=== PATIENT | female | born 1960 | race Caucasian/White ===

== ENCOUNTER 2016-12-26 18:25 | Inpatient (IN) | payer OTHER ==
[~2016-12-26] VITALS: Ht 165.1 cm; Wt 69.3 kg
[~2016-12-26 18:25] MED LIST: ADULT LOW DOSE81 M1 PO; ADVAIR 250/501 DISK IH; ALPRAZOLAM0.25 MG PO; ALPRAZOLAM0.5 MG; AMBIEN10 MG PO; ASPIRIN E.C.81 M1 PO; BACLOFEN10 MG; BAYER CHILDREN'81 M1 PO; CARVEDILOL12.5 MG; CARVEDILOL12.5 MG PO; CARVEDILOL25 MG PO; CLONAZEPAM0.5 MG PO; COMBIVENT INH14.7 GM IH; COMPAZINE10 MG PO; COREG12.5 M1; COREG12.5 M1 PO; Carvedilol PO; DESYREL100 MG PO; DIAZEPAM5 MG; DILAUDID2 MG PO; DIOVAN160 MG PO; DIOVAN80 MG PO; ERGOCALCIF50000 UNIT PO; ESCITALOPRAM OX10 MG PO; ESCITALOPRAM OX20 MG; ESCITALOPRAM OX20 MG PO; FLEXERIL10 MG PO; GABAPENTIN100 MG; HYDROCODON-ACE1 EAC9 PO; IMODIUM A-D2 MG PO; INDOCIN25 MG PO; KLONOPIN0.5 M1 PO; KlonoPIN PO; LANOXIN,DIGI0.125 MG PO; LASIX40 MG PO; LEXAPRO10 MG PO; LEXAPRO20 MG PO; LIDOCAINE HCL35 GM TP; LIDODERM 5% P1 PATCH; LIDODERM 5% P1 PATCH TD; LISINOPRIL20 MG PO; LO-DOSE ASPIRIN81 M1 PO; Lexapro PO; METHOCARBAMOL500 MG PO; MYCOSTATIN 100,60 ML PO; NEURONTIN400 MG PO; NORCO 7.5/321 TABLET PO; OMEPRAZOLE40 M1 PO; OXCARBAZEPINE300 MG PO; OXCARBAZEPINE600 MG; OXCARBAZEPINE600 MG PO; OXECTA5 MG PO; OXYCODONE HCL5 M1 PO; OXYCODONE HCL5 MG; OXYCODONE HCL5 MG PO; Oxcarbazepine PO; PEPCID20 MG PO; PERCOCET 5/31 TABLET PO; PREDNISONE20 MG PO; PRILOSEC40 MG PO; PRINIVIL10 MG PO; PROAIR HFA8.5 GM IH; Percocet 5/325,Endoc PO; RANITIDINE HCL150 MG PO; SPIRIVA1 INHALATI IH; TRAZODONE HCL100 MG PO; TYLENOL EXTRA500 M2 PO; Toprol XL PO; Tylenol Extra Streng PO; Tylenol Regular Stre PO; VALIUM10 MG; VALIUM5 MG; ZENPEP DR 5,001 EACH PO; ZESTRIL,PRINIVI10 MG PO; ZITHROMAX Z-PA250 MG PO; ZOFRAN8 MG PO; ZOLPIDEM TARTRA10 MG; ZOLPIDEM TARTRATE; Zestril,Prinivil PO; [UNRECOGNIZED DRUG - REMARK]
[2016-12-26 19:30] LABS: HEMATOCRIT 36.4 % (36.0-46.0); MCH 30.2 PG (29.0-34.0); MCHC 33.2 G/DL (30.0-36.0); MCV 90.8 FL (83-99); MEAN PLAT.VOLUME 10.3 uM^3 (9.5-12.4); PLATELET COUNT 197 K/uL (156-360); RBC DIS.WIDTH-CV 12.6 % (11.8-14.6); RBC DIS.WIDTH-SD 41.6 % (39-53); RED BLOOD COUNT 4.01 M/uL (3.80-5.20); WHITE BLOOD COUNT 10.5 K/uL (4.1-10.2)
[2016-12-26 19:52] LABS: ADD MIUA? YES; BILIRUBIN NEGATIVE; BLOOD SMALL; COLOR YELLOW ((YELLOW)); GLUCOSE (STRIP) NEGATIVE; KETONES NEGATIVE; LEUKOCYTES NEGATIVE; NITRITE NEGATIVE; PROTEIN (STRIP) NEGATIVE; UROBILINOGEN 0.2 MG/DL (0.2-1.0)
[2016-12-26 19:52] LABS: CHLORIDE 111 mEq/L (99-109); POTASSIUM 3.9 mEq/L (3.7-5.4); SODIUM 141 mEq/L (136-147)
[2016-12-26 19:53] LABS: GLUCOSE 114 mg/dL (70-99)
[2016-12-26 19:55] LABS: ANION GAP 5 MEQ/L (2-14)
[2016-12-26 19:57] LABS: GFR ESTIMATE (CALCULATED) > 59 mL/min/
[2016-12-26 19:58] LABS: UREA NITROGEN (BUN) 17 mg/dL (9-23)
[2016-12-26 19:59] LABS: BACTERIA RARE /HPF; EPITHELIAL CELLS RARE /HPF; MUCUS TRACE /LPF; RED BLOOD CELLS 0-5 /HPF (0-5); UCUL ADDED? NO; WHITE BLOOD CELLS 0-5 /HPF (0-5)
[2016-12-26 21:22] LABS: TOTAL BILIRUBIN 0.2 mg/dL (0.0-1.0)
[2016-12-26 21:23] LABS: ALKALINE PHOSPHATASE 75 IU/L (3-129)
[2016-12-26 21:25] LABS: DIRECT BILIRUBIN 0.1 mg/dL (0.0-0.3)
[2016-12-26 21:45] LABS: AMYLASE 707 IU/L (1-118)
[2016-12-26 22:19] LABS: LIPASE 1307 U/L (1.0-51.0)
[2016-12-26] MEDS ORDERED: ASMANEX HFA13 GM IH (23:10)
[2016-12-26] MEDS ORDERED: TESSALON PERLE100 MG PO (23:11)
[2016-12-26] MEDS ORDERED: LEVAQUIN750 MG PO (23:12)
[2016-12-26] MEDS ORDERED: MAXALT10 MG PO (23:13)
[2016-12-27 01:13] VITALS: BP 151/78
[2016-12-27 03:33] VITALS: BP 115/59
[2016-12-27 07:41] LABS: HEMATOCRIT 32.9 % (36.0-46.0); MCH 29.7 PG (29.0-34.0); MCHC 32.5 G/DL (30.0-36.0); MCV 91.4 FL (83-99); PLATELET COUNT 175 K/uL (156-360); RBC DIS.WIDTH-CV 12.6 % (11.8-14.6); RBC DIS.WIDTH-SD 42.5 % (39-53); WHITE BLOOD COUNT 8.2 K/uL (4.1-10.2)
[2016-12-27 08:04] VITALS: BP 118/64
[2016-12-27 08:15] LABS: ALKALINE PHOSPHATASE 103 IU/L (3-129); AMYLASE 298 IU/L (1-118); ANION GAP 5 MEQ/L (2-14); CHLORIDE 112 MEQ/L (99-109); GFR ESTIMATE (CALCULATED) > 59 mL/min/; GLUCOSE 104 mg/dL (70-99); LIPASE 655 U/L (1.0-51.0); SAMPLE HEMOLYSIS CHECK 0; SAMPLE ICTERIC CHECK 0; SAMPLE LIPEMIA CHECK 0; SODIUM 143 MEQ/L (136-147); TOTAL BILIRUBIN 0.7 MG/DL (0.0-1.0); UREA NITROGEN (BUN) 10 mg/dL (9-23)
[2016-12-27 15:32] VITALS: BP 120/65
[2016-12-27 19:35] VITALS: BP 141/92
[2016-12-27 23:29] VITALS: BP 140/69
[2016-12-28 03:20] VITALS: BP 142/71
[2016-12-28 06:00] LABS: EOSINOPHIL (%) 0.4 % (0-5); IMMATURE GRANULOCYTE (%) 0.4 % (0.0-0.7); INSTRUMENT ABS NEUTROPHIL CT 4.5 K/uL; MCH 30.5 PG (29.0-34.0); MCHC 33.1 G/DL (30.0-36.0); MEAN PLAT.VOLUME 10.1 uM^3 (9.5-12.4); MONOCYTE COUNT 0.3 K/uL (0-0.8); NEUTROPHIL COUNT 4.5 K/uL (1.8-6.4); PLATELET COUNT 173 K/uL (156-360); RBC DIS.WIDTH-CV 12.6 % (11.8-14.6); RBC DIS.WIDTH-SD 42.3 % (39-53); RED BLOOD COUNT 3.48 M/uL (3.80-5.20); WHITE BLOOD COUNT 6.9 K/uL (4.1-10.2)
[2016-12-28 06:36] LABS: ALKALINE PHOSPHATASE 106 IU/L (3-129); ANION GAP 8 MEQ/L (2-14); CHLORIDE 108 MEQ/L (99-109); GFR ESTIMATE (CALCULATED) > 59 mL/min/; GLUCOSE 76 mg/dL (70-99); HDL CHOLESTEROL 30 MG/DL (Desirable>=50); LDL CHOLESTEROL 73 mg/dL (Desirable<100); LIPASE 195 U/L (1.0-51.0); NON-HDL CHOLESTEROL 88 mg/dL (Desirable<160); POTASSIUM 4.6 MEQ/L (3.7-5.4); SAMPLE HEMOLYSIS CHECK 0; SAMPLE ICTERIC CHECK 0; SAMPLE LIPEMIA CHECK 0; SODIUM 141 MEQ/L (136-147); TOTAL CHOLESTEROL 118 mg/dL (Desirable<200); TRIGLYCERIDES 74 MG/DL (Normal: <150); UREA NITROGEN (BUN) 11 mg/dL (9-23)
[2016-12-28 06:37] LABS: AMYLASE 115 IU/L (1-118); TOTAL BILIRUBIN 0.4 MG/DL (0.0-1.0)
[2016-12-28 08:39] VITALS: BP 138/73
[2016-12-28 11:21] VITALS: BP 146/67
[2016-12-28 15:49] VITALS: BP 176/79
[2016-12-28 19:11] VITALS: BP 154/70
[2016-12-28 23:37] VITALS: BP 148/78
[2016-12-29 03:50] VITALS: BP 132/71
[2016-12-29 05:44] LABS: CHLORIDE 111 mEq/L (99-109); POTASSIUM 3.8 mEq/L (3.7-5.4); SODIUM 148 mEq/L (136-147)
[2016-12-29 05:46] LABS: GLUCOSE 97 mg/dL (70-99)
[2016-12-29 05:47] LABS: ANION GAP 9 MEQ/L (2-14)
[2016-12-29 05:48] LABS: TOTAL BILIRUBIN 0.2 mg/dL (0.0-1.0)
[2016-12-29 05:50] LABS: ALKALINE PHOSPHATASE 96 IU/L (3-129); GFR ESTIMATE (CALCULATED) > 59 mL/min/
[2016-12-29 05:51] LABS: UREA NITROGEN (BUN) 5 mg/dL (9-23)
[2016-12-29 05:53] LABS: LIPASE 383 U/L (1.0-51.0)
[2016-12-29 05:59] LABS: EOSINOPHIL COUNT 0.1 K/uL (0-0.3); HEMATOCRIT 31.1 % (36.0-46.0); IMMATURE GRANULOCYTE (%) 0.5 % (0.0-0.7); INSTRUMENT ABS NEUTROPHIL CT 3.3 K/uL; LYMPHOCYTE COUNT 2.3 K/uL (1.0-2.8); MCH 30.2 PG (29.0-34.0); MCHC 33.4 G/DL (30.0-36.0); MCV 90.4 FL (83-99); MEAN PLAT.VOLUME 10.1 uM^3 (9.5-12.4); MONOCYTE (%) 6.8 % (3-12); MONOCYTE COUNT 0.4 K/uL (0-0.8); NEUTROPHIL (%) 54.1 % (45-76); NEUTROPHIL COUNT 3.3 K/uL (1.8-6.4); PLATELET COUNT 196 K/uL (156-360); RBC DIS.WIDTH-CV 12.6 % (11.8-14.6); RBC DIS.WIDTH-SD 41.7 % (39-53); RED BLOOD COUNT 3.44 M/uL (3.80-5.20); WHITE BLOOD COUNT 6.1 K/uL (4.1-10.2)
[2016-12-29 07:30] VITALS: BP 168/86
[2016-12-29 11:30] VITALS: BP 179/87
[2016-12-29 15:50] VITALS: BP 178/81
[2016-12-29] MEDS ORDERED: NICOTINE PATCH1 EAC2 TD (20:20)
[2016-12-29] MEDS ORDERED: NICORELIEF2 MG BC (20:20)
[2016-12-29] MEDS ORDERED: BREO ELLIPTA 21 EACH IH (20:23)
== END 2016-12-29 21:03 | disposition home or self-care (01) | DRG 439 ==
LOC: EME 18:25 → EDOF 23:21 → 2EASTP 23:21 → ENRESERV 23:23 → ENRESERVTM 12-27 00:15 → ENRESERV 12-27 00:15 → ENRESERVDT 12-27 00:15 → 2EASTP 12-27 00:53 → 2EAST 12-27 18:14
PROVIDERS: Family Medicine; Family Medicine Sports Medicine; Internal Medicine Gastroenterology
DX: K85.90 Acute pancreatitis without necrosis or infection, unspecified (principal); I11.0 Hypertensive heart disease with heart failure; I50.9 Heart failure, unspecified; K86.3 Pseudocyst of pancreas; K86.1 Other chronic pancreatitis; K27.9 Peptic ulcer, site unspecified, unspecified as acute or chronic, without hemorrhage or perforation; J44.9 Chronic obstructive pulmonary disease, unspecified; I25.10 Atherosclerotic heart disease of native coronary artery without angina pectoris; K21.9 Gastro-esophageal reflux disease without esophagitis; F32.9 Major depressive disorder, single episode, unspecified; F41.1 Generalized anxiety disorder; F43.10 Post-traumatic stress disorder, unspecified; F17.210 Nicotine dependence, cigarettes, uncomplicated; E11.9 Type 2 diabetes mellitus without complications; Z86.73 Personal history of transient ischemic attack (TIA), and cerebral infarction without residual deficits; Z90.49 Acquired absence of other specified parts of digestive tract; G89.29 Other chronic pain; M54.5 Low back pain; Z85.038 Personal history of other malignant neoplasm of large intestine; Z85.51 Personal history of malignant neoplasm of bladder; Z85.828 Personal history of other malignant neoplasm of skin; Z85.89 Personal history of malignant neoplasm of other organs and systems; Z23 Encounter for immunization
CPT/HCPCS: 71020; 74177; 80048; 80053; 80061; 80076; 81003; 82150; 83690; 85025; 85027; 90686; 94640; 94640 76; 94799; 99202; 99281; 99285; G0480; J1170; J1650; J2270; J2405; J2765; J3010; J7030; J7120; Q0169

== ENCOUNTER 2017-03-28 09:01 | Inpatient (IN) | payer OTHER ==
[~2017-03-28] VITALS: Ht 165.1 cm; Wt 82.0 kg
[~2017-03-28 09:01] MED LIST changes: +ACID CONTROL150 MG PO; +ALBUTEROL2.5 MG/3 M IH; +ASMANEX HFA13 GM IH; +BREO ELLIPTA 21 EACH IH; +BUSPAR10 MG PO; +CIPRO500 MG PO; -ESCITALOPRAM OX20 MG PO; +FERROUS SULFAT325 MG PO; +LEVAQUIN750 MG PO; +MAXALT10 MG PO; +NICORELIEF2 MG BC; +NICOTINE PATCH1 EAC2 TD; -RANITIDINE HCL150 MG PO; +TESSALON PERLE100 MG PO
[2017-03-28 09:32] LABS: HEMATOCRIT 40.1 % (36.0-46.0); HEMOGLOBIN 13.7 G/DL (11.9-15.5); MCH 30.8 PG (29.0-34.0); MCHC 34.2 G/DL (30.0-36.0); MCV 90.1 FL (83-99); PLATELET COUNT 218 K/uL (156-360); RBC DIS.WIDTH-CV 13.4 % (11.8-14.6); RED BLOOD COUNT 4.45 M/uL (3.80-5.20); WHITE BLOOD COUNT 7.9 K/uL (4.1-10.2)
[2017-03-28 09:50] LABS: CHLORIDE 108 mEq/L (99-109); POTASSIUM 4.8 mEq/L (3.7-5.4); SODIUM 138 mEq/L (136-147)
[2017-03-28 09:53] LABS: GLUCOSE 121 mg/dL (70-99); TOTAL PROTEIN 6.8 g/dL (6.4-8.3)
[2017-03-28 09:55] LABS: TOTAL BILIRUBIN 0.4 mg/dL (0.0-1.0)
[2017-03-28 09:56] LABS: ALKALINE PHOSPHATASE 78 IU/L (3-129); CREATININE 0.8 mg/dL (0.6-1.3); GFR ESTIMATE (CALCULATED) > 59 mL/min/
[2017-03-28 09:58] LABS: AST (GOT) 15 IU/L (2-34); UREA NITROGEN (BUN) 9 mg/dL (9-23)
[2017-03-28 09:59] LABS: ALT (GPT) 11 IU/L (3-49)
[2017-03-28 10:25] LABS: APPEARANCE SL.HAZY ((CLEAR)); BILIRUBIN NEGATIVE; BLOOD NEGATIVE; COLOR YELLOW ((YELLOW)); GLUCOSE (STRIP) NEGATIVE; KETONES NEGATIVE; LEUKOCYTES SMALL; NITRITE NEGATIVE; PROTEIN (STRIP) NEGATIVE; SPECIFIC GRAVITY 1.014 (1.000-1.030); UROBILINOGEN 0.2 MG/DL (0.2-1.0)
[2017-03-28 10:34] LABS: BACTERIA 1+ /HPF; EPITHELIAL CELLS RARE /HPF; MUCUS TRACE /LPF; RED BLOOD CELLS 0-5 /HPF (0-5); UCUL ADDED? YES; WHITE BLOOD CELLS 20-30 /HPF (0-5)
[2017-03-28] MEDS ORDERED: PRINIVIL20 MG PO (11:13)
[2017-03-28] MEDS ORDERED: HYDROCODON-ACE1 EAC9 PO (11:14)
[2017-03-28] MEDS ORDERED: BUSPAR10 MG PO (11:15)
[2017-03-28] MEDS ORDERED: CREON 241 CAPSULE PO ×2 (11:16)
[2017-03-28 12:16] LABS: LIPASE 1258 U/L (1.0-51.0)
[2017-03-28 20:29] VITALS: BP 120/70
[2017-03-28 22:00] LABS: APPEARANCE CLEAR ((CLEAR)); BILIRUBIN NEGATIVE; BLOOD SMALL; COLOR YELLOW ((YELLOW)); GLUCOSE (STRIP) NEGATIVE; KETONES NEGATIVE; LEUKOCYTES NEGATIVE; NITRITE NEGATIVE; PROTEIN (STRIP) NEGATIVE; SPECIFIC GRAVITY 1.023 (1.000-1.030)
[2017-03-28 22:16] LABS: BACTERIA RARE /HPF; EPITHELIAL CELLS RARE /HPF; MUCUS NONE SEEN /LPF; RED BLOOD CELLS 0-5 /HPF (0-5); WHITE BLOOD CELLS 0-5 /HPF (0-5)
[2017-03-28 23:24] VITALS: BP 108/62
[2017-03-29 06:36] LABS: ALBUMIN 3.1 G/DL (3.2-4.8); ALKALINE PHOSPHATASE 114 IU/L (3-129); ALT (GPT) 105 IU/L (3-49); AMYLASE 139 IU/L (1-118); AST (GOT) 133 IU/L (2-34); CHLORIDE 113 MEQ/L (99-109); CREATININE 0.7 MG/DL (0.6-1.3); GFR ESTIMATE (CALCULATED) > 59 mL/min/; LIPASE 163 U/L (1.0-51.0); POTASSIUM 4.2 MEQ/L (3.7-5.4); SODIUM 142 MEQ/L (136-147); TOTAL BILIRUBIN 0.4 MG/DL (0.0-1.0); TOTAL PROTEIN 5.1 G/DL (6.4-8.3); UREA NITROGEN (BUN) 8 mg/dL (9-23)
[2017-03-29 06:37] LABS: GLUCOSE 83 mg/dL (70-99)
[2017-03-29 06:51] LABS: HEMATOCRIT 33.7 % (36.0-46.0); MCH 31.2 PG (29.0-34.0); MCHC 33.5 G/DL (30.0-36.0); MCV 93.1 FL (83-99); PLATELET COUNT 157 K/uL (156-360); RBC DIS.WIDTH-CV 13.6 % (11.8-14.6); RBC DIS.WIDTH-SD 46.7 % (39-53); RED BLOOD COUNT 3.62 M/uL (3.80-5.20); WHITE BLOOD COUNT 4.8 K/uL (4.1-10.2)
[2017-03-29 06:59] LABS: HEMOGLOBIN 11.3 G/DL (11.9-15.5)
[2017-03-29 08:17] VITALS: BP 115/63
[2017-03-29 16:44] VITALS: BP 102/58
[2017-03-29 21:20] VITALS: BP 151/73
[2017-03-29 22:24] LABS: TROP-I INTERPRETATION NEGATIVE; TROPONIN-I < 0.01 ng/mL (0.0-0.30)
[2017-03-29 23:33] VITALS: BP 148/70
[2017-03-30 07:08] LABS: HEMATOCRIT 34.9 % (36.0-46.0); HEMOGLOBIN 10.9 G/DL (11.9-15.5); MCH 29.9 PG (29.0-34.0); MCHC 31.2 G/DL (30.0-36.0); MCV 95.6 FL (83-99); PLATELET COUNT 153 K/uL (156-360); RBC DIS.WIDTH-CV 13.2 % (11.8-14.6); RED BLOOD COUNT 3.65 M/uL (3.80-5.20); WHITE BLOOD COUNT 5.4 K/uL (4.1-10.2)
[2017-03-30 07:15] VITALS: BP 112/63
[2017-03-30 07:41] LABS: TROP-I INTERPRETATION NEGATIVE; TROPONIN-I 0.01 ng/mL (0.0-0.30)
[2017-03-30 08:17] LABS: ALBUMIN 3.1 G/DL (3.2-4.8); ALKALINE PHOSPHATASE 103 IU/L (3-129); ALT (GPT) 68 IU/L (3-49); CARCINOEMBR.ANTIGEN 1.4 NG/ML; CHLORIDE 112 MEQ/L (99-109); CREATININE 0.6 MG/DL (0.6-1.3); GFR ESTIMATE (CALCULATED) > 59 mL/min/; GLUCOSE 55 mg/dL (70-99); LIPASE 154 U/L (1.0-51.0); POTASSIUM 4.2 MEQ/L (3.7-5.4); SODIUM 142 MEQ/L (136-147); TOTAL BILIRUBIN 0.4 MG/DL (0.0-1.0); TOTAL PROTEIN 5.1 G/DL (6.4-8.3); UREA NITROGEN (BUN) 10 mg/dL (9-23)
[2017-03-30 08:25] LABS: AST (GOT) 50 IU/L (2-34)
[2017-03-30 11:10] VITALS: BP 116/67
[2017-03-30 15:07] LABS: TROP-I INTERPRETATION NEGATIVE; TROPONIN-I < 0.01 ng/mL (0.0-0.30)
[2017-03-30 15:15] VITALS: BP 134/71
[2017-03-30 20:20] VITALS: BP 139/70
[2017-03-30 23:14] VITALS: BP 126/68
[2017-03-31 03:59] VITALS: BP 123/57
[2017-03-31 06:28] LABS: HEMATOCRIT 33.3 % (36.0-46.0); HEMOGLOBIN 11.1 G/DL (11.9-15.5); MCH 30.7 PG (29.0-34.0); MCHC 33.3 G/DL (30.0-36.0); PLATELET COUNT 155 K/uL (156-360); RBC DIS.WIDTH-CV 13.1 % (11.8-14.6); RBC DIS.WIDTH-SD 43.6 % (39-53); RED BLOOD COUNT 3.62 M/uL (3.80-5.20); WHITE BLOOD COUNT 4.7 K/uL (4.1-10.2)
[2017-03-31 06:58] LABS: ALBUMIN 3.1 G/DL (3.2-4.8); ALKALINE PHOSPHATASE 95 IU/L (3-129); ALT (GPT) 47 IU/L (3-49); CHLORIDE 112 MEQ/L (99-109); CREATININE 0.7 MG/DL (0.6-1.3); GFR ESTIMATE (CALCULATED) > 59 mL/min/; LIPASE 193 U/L (1.0-51.0); POTASSIUM 4.1 MEQ/L (3.7-5.4); SODIUM 142 MEQ/L (136-147); TOTAL PROTEIN 5.1 G/DL (6.4-8.3); UREA NITROGEN (BUN) 10 mg/dL (9-23)
[2017-03-31 07:00] VITALS: BP 126/67
[2017-03-31 07:07] LABS: AST (GOT) 26 IU/L (2-34); GLUCOSE 48 mg/dL (70-99); TOTAL BILIRUBIN 0.3 MG/DL (0.0-1.0)
[2017-03-31 15:00] VITALS: BP 135/72
[2017-03-31 22:53] VITALS: BP 141/68
[2017-04-01 07:03] LABS: ALBUMIN 3.4 G/DL (3.2-4.8); ALKALINE PHOSPHATASE 93 IU/L (3-129); ALT (GPT) 39 IU/L (3-49); AST (GOT) 17 IU/L (2-34); CHLORIDE 114 MEQ/L (99-109); CREATININE 0.5 MG/DL (0.6-1.3); GFR ESTIMATE (CALCULATED) > 59 mL/min/; LIPASE 238 U/L (1.0-51.0); POTASSIUM 3.6 MEQ/L (3.7-5.4); SODIUM 146 MEQ/L (136-147); TOTAL BILIRUBIN 0.3 MG/DL (0.0-1.0); TOTAL PROTEIN 5.5 G/DL (6.4-8.3); UREA NITROGEN (BUN) 3 mg/dL (9-23)
[2017-04-01 07:06] LABS: GLUCOSE 110 mg/dL (70-99)
[2017-04-01 07:10] LABS: BASOPHIL (%) 1.1 % (0-1); BASOPHIL COUNT 0.1 K/uL (0-0.1); EOSINOPHIL (%) 5.3 % (0-5); EOSINOPHIL COUNT 0.2 K/uL (0-0.3); HEMATOCRIT 34.8 % (36.0-46.0); HEMOGLOBIN 11.7 G/DL (11.9-15.5); IMMATURE GRANULOCYTE (%) 0.7 % (0.0-0.7); LYMPHOCYTE (%) 35.7 % (15-42); LYMPHOCYTE COUNT 1.6 K/uL (1.0-2.8); MCH 29.7 PG (29.0-34.0); MCHC 33.6 G/DL (30.0-36.0); MCV 88.3 FL (83-99); MONOCYTE (%) 8.8 % (3-12); MONOCYTE COUNT 0.4 K/uL (0-0.8); NEUTROPHIL (%) 48.4 % (45-76); NEUTROPHIL COUNT 2.2 K/uL (1.8-6.4); PLATELET COUNT 171 K/uL (156-360); RBC DIS.WIDTH-SD 42.5 % (39-53); RED BLOOD COUNT 3.94 M/uL (3.80-5.20); WHITE BLOOD COUNT 4.5 K/uL (4.1-10.2)
[2017-04-01 07:45] VITALS: BP 143/82
[2017-04-01 15:00] VITALS: BP 184/102
[2017-04-02 00:01] VITALS: BP 143/74
[2017-04-02 06:32] LABS: BASOPHIL (%) 1.1 % (0-1); BASOPHIL COUNT 0.1 K/uL (0-0.1); EOSINOPHIL (%) 5.1 % (0-5); EOSINOPHIL COUNT 0.2 K/uL (0-0.3); HEMOGLOBIN 11.1 G/DL (11.9-15.5); IMMATURE GRANULOCYTE (%) 0.2 % (0.0-0.7); LYMPHOCYTE (%) 46.6 % (15-42); LYMPHOCYTE COUNT 2.2 K/uL (1.0-2.8); MCHC 33.6 G/DL (30.0-36.0); MCV 89.2 FL (83-99); MONOCYTE (%) 8.3 % (3-12); MONOCYTE COUNT 0.4 K/uL (0-0.8); NEUTROPHIL (%) 38.7 % (45-76); NEUTROPHIL COUNT 1.8 K/uL (1.8-6.4); PLATELET COUNT 159 K/uL (156-360); RBC DIS.WIDTH-CV 13.2 % (11.8-14.6); RBC DIS.WIDTH-SD 42.9 % (39-53); WHITE BLOOD COUNT 4.7 K/uL (4.1-10.2)
[2017-04-02 06:56] LABS: ALBUMIN 3.2 G/DL (3.2-4.8); ALKALINE PHOSPHATASE 80 IU/L (3-129); ALT (GPT) 29 IU/L (3-49); AMYLASE 107 IU/L (1-118); AST (GOT) 12 IU/L (2-34); CHLORIDE 110 MEQ/L (99-109); CREATININE 0.6 MG/DL (0.6-1.3); GFR ESTIMATE (CALCULATED) > 59 mL/min/; GLUCOSE 106 mg/dL (70-99); LIPASE 224 U/L (1.0-51.0); POTASSIUM 3.3 MEQ/L (3.7-5.4); SODIUM 144 MEQ/L (136-147); TOTAL PROTEIN 5.2 G/DL (6.4-8.3); UREA NITROGEN (BUN) 2 mg/dL (9-23)
[2017-04-02 06:57] LABS: TOTAL BILIRUBIN 0.2 MG/DL (0.0-1.0)
[2017-04-02 07:26] VITALS: BP 132/86
[2017-04-02 15:19] VITALS: BP 143/83
[2017-04-03 00:11] VITALS: BP 178/82
[2017-04-03 00:37] VITALS: BP 140/87
[2017-04-03 06:32] LABS: BASOPHIL (%) 0.8 % (0-1); BASOPHIL COUNT 0.1 K/uL (0-0.1); EOSINOPHIL (%) 3.7 % (0-5); EOSINOPHIL COUNT 0.2 K/uL (0-0.3); HEMATOCRIT 35.8 % (36.0-46.0); HEMOGLOBIN 12.3 G/DL (11.9-15.5); IMMATURE GRANULOCYTE (%) 0.3 % (0.0-0.7); LYMPHOCYTE (%) 38.7 % (15-42); LYMPHOCYTE COUNT 2.5 K/uL (1.0-2.8); MCH 30.9 PG (29.0-34.0); MCHC 34.4 G/DL (30.0-36.0); MCV 89.9 FL (83-99); MONOCYTE (%) 5.8 % (3-12); MONOCYTE COUNT 0.4 K/uL (0-0.8); NEUTROPHIL (%) 50.7 % (45-76); NEUTROPHIL COUNT 3.3 K/uL (1.8-6.4); PLATELET COUNT 177 K/uL (156-360); RBC DIS.WIDTH-CV 13.2 % (11.8-14.6); RBC DIS.WIDTH-SD 43.7 % (39-53); RED BLOOD COUNT 3.98 M/uL (3.80-5.20); WHITE BLOOD COUNT 6.5 K/uL (4.1-10.2)
[2017-04-03 06:46] LABS: ALBUMIN 3.3 G/DL (3.2-4.8); ALKALINE PHOSPHATASE 81 IU/L (3-129); ALT (GPT) 23 IU/L (3-49); AST (GOT) 10 IU/L (2-34); CHLORIDE 110 MEQ/L (99-109); CREATININE 0.6 MG/DL (0.6-1.3); GFR ESTIMATE (CALCULATED) > 59 mL/min/; GLUCOSE 98 mg/dL (70-99); LIPASE 427 U/L (1.0-51.0); SODIUM 145 MEQ/L (136-147); TOTAL PROTEIN 5.4 G/DL (6.4-8.3); UREA NITROGEN (BUN) 7 mg/dL (9-23)
[2017-04-03 06:50] LABS: POTASSIUM 4.1 MEQ/L (3.7-5.4); TOTAL BILIRUBIN 0.3 MG/DL (0.0-1.0)
[2017-04-03 07:43] VITALS: BP 156/87
[2017-04-03 16:14] VITALS: BP 136/83
[2017-04-04 00:09] VITALS: BP 130/77
[2017-04-04 07:05] VITALS: BP 166/83
[2017-04-04 15:45] VITALS: BP 160/79
[2017-04-05 00:04] VITALS: BP 140/74
[2017-04-05 07:15] VITALS: BP 144/87
[2017-04-05 15:53] VITALS: BP 167/86
== END 2017-04-05 21:10 | disposition home or self-care (01) | DRG 439 ==
LOC: EME 09:01 → RME 09:01 → 5EAST 13:00 → EDOF 13:00 → ENRESERV 13:18 → 5EAST 19:42
PROVIDERS: Internal Medicine; Internal Medicine Gastroenterology
DX: K85.90 Acute pancreatitis without necrosis or infection, unspecified (principal); K86.1 Other chronic pancreatitis; Z85.038 Personal history of other malignant neoplasm of large intestine; I11.0 Hypertensive heart disease with heart failure; I50.9 Heart failure, unspecified; D64.9 Anemia, unspecified; E87.6 Hypokalemia; F17.210 Nicotine dependence, cigarettes, uncomplicated; F41.9 Anxiety disorder, unspecified; F32.9 Major depressive disorder, single episode, unspecified; K21.9 Gastro-esophageal reflux disease without esophagitis; K86.3 Pseudocyst of pancreas; Z90.49 Acquired absence of other specified parts of digestive tract; E16.2 Hypoglycemia, unspecified; Z86.73 Personal history of transient ischemic attack (TIA), and cerebral infarction without residual deficits; Z83.3 Family history of diabetes mellitus; Z85.51 Personal history of malignant neoplasm of bladder
CPT/HCPCS: 74177; 80053; 81003; 82150; 82378; 82948; 83690; 84484; 85025; 85027; 86301 90; 87077; 87086; 87186; 93005; 94640; 94760; 94799; 99202; 99281; 99285; C9113; J0696; J1170; J2270; J2405; J3010; J3480; J7030; J7050; J7070

== ENCOUNTER → 2017-04-20 | Outpatient (CLI) | payer OTHER ==
[~2017-04-20] VITALS: Ht 165.1 cm; Wt 64.0 kg
[~2017-04-20] MED LIST changes: +CREON 241 CAPSULE PO; +PRINIVIL20 MG PO
== END | disposition home or self-care (01) ==
LOC: AMB 04-13 08:30
DX: K86.3 Pseudocyst of pancreas (principal); K86.89 Other specified diseases of pancreas; K86.1 Other chronic pancreatitis
CPT/HCPCS: 74330; C1726; J1170; J2250; J2405; J3010

== ENCOUNTER → 2017-05-10 | Outpatient (CLI) | payer OTHER ==
[~2017-05-10] VITALS: Ht 165.1 cm; Wt 62.6 kg
== END | disposition home or self-care (01) ==
LOC: AMB 13:47
PROC: 0DC78ZZ Extirpation of Matter from Stomach, Pylorus, Via Natural or Artificial Opening Endoscopic (ICD-10-PCS; principal; 2017-05-10)
DX: Z46.89 Encounter for fitting and adjustment of other specified devices (principal)
CPT/HCPCS: J2250

== ENCOUNTER 2017-05-18 15:07 | Emergency (ER) | payer OTHER ==
[~2017-05-18] VITALS: Ht 165.1 cm; Wt 62.9 kg
[2017-05-18 15:58] LABS: HEMOGLOBIN 13.8 G/DL (11.9-15.5); MCH 29.6 PG (29.0-34.0); MCHC 34.5 G/DL (30.0-36.0); MCV 85.8 FL (83-99); PLATELET COUNT 193 K/uL (156-360); RBC DIS.WIDTH-CV 12.9 % (11.8-14.6); RBC DIS.WIDTH-SD 39.8 % (39-53); RED BLOOD COUNT 4.66 M/uL (3.80-5.20); WHITE BLOOD COUNT 9.8 K/uL (4.1-10.2)
[2017-05-18 16:08] LABS: CHLORIDE 105 mEq/L (99-109); POTASSIUM 4.2 mEq/L (3.7-5.4); SODIUM 137 mEq/L (136-147)
[2017-05-18 16:10] LABS: GLUCOSE 106 mg/dL (70-99); TOTAL PROTEIN 7.2 g/dL (6.4-8.3)
[2017-05-18 16:12] LABS: TOTAL BILIRUBIN 0.3 mg/dL (0.0-1.0)
[2017-05-18 16:13] LABS: ALKALINE PHOSPHATASE 85 IU/L (3-129)
[2017-05-18 16:14] LABS: CREATININE 0.8 mg/dL (0.6-1.3); GFR ESTIMATE (CALCULATED) > 59 mL/min/
[2017-05-18 16:15] LABS: AST (GOT) 12 IU/L (2-34); UREA NITROGEN (BUN) 8 mg/dL (9-23)
[2017-05-18 16:17] LABS: ALT (GPT) 8 IU/L (3-49); LIPASE 106 U/L (1.0-51.0)
[2017-05-18 17:30] LABS: APPEARANCE CLEAR ((CLEAR)); BILIRUBIN NEGATIVE; BLOOD SMALL; COLOR STRAW ((YELLOW)); GLUCOSE (STRIP) NEGATIVE; KETONES NEGATIVE; LEUKOCYTES MODERATE; NITRITE NEGATIVE; PROTEIN (STRIP) NEGATIVE; SPECIFIC GRAVITY 1.021 (1.000-1.030); UROBILINOGEN 0.2 MG/DL (0.2-1.0)
[2017-05-18 17:35] LABS: BACTERIA RARE /HPF; EPITHELIAL CELLS RARE /HPF; MUCUS NONE SEEN /LPF; RED BLOOD CELLS 0-5 /HPF (0-5); UCUL ADDED? YES
[2017-05-18] MEDS ORDERED: REGLAN10 MG PO (19:23)
[2017-05-18] MEDS ORDERED: CIPRO500 MG PO (19:23)
[2017-05-18] MEDS ORDERED: COMPAZINE25 M1 PR (19:23)
[2017-05-18] MEDS ORDERED: PERCOCET 5/31 TABLET PO (19:23)
[2017-05-18 20:20] VITALS: BP 120/74
== END 2017-05-18 20:46 | disposition home or self-care (01) ==
LOC: EME 15:07
DX: N39.0 Urinary tract infection, site not specified (principal); R10.12 Left upper quadrant pain; R11.2 Nausea with vomiting, unspecified; E86.0 Dehydration; K86.2 Cyst of pancreas; I10 Essential (primary) hypertension; J44.9 Chronic obstructive pulmonary disease, unspecified; Z85.038 Personal history of other malignant neoplasm of large intestine; Z85.51 Personal history of malignant neoplasm of bladder; Z85.828 Personal history of other malignant neoplasm of skin; Z86.73 Personal history of transient ischemic attack (TIA), and cerebral infarction without residual deficits; F17.200 Nicotine dependence, unspecified, uncomplicated
CPT/HCPCS: 74177; 80053; 81003; 83690; 85027; 87077; 87086; 87186; 99281; 99285; J0696; J1630; J2270; J2405; J2765; J7040

== ENCOUNTER 2017-11-02 19:01 | Emergency (ER) | payer OTHER ==
[~2017-11-02] VITALS: Ht 165.1 cm; Wt 62.5 kg
[~2017-11-02 19:01] MED LIST changes: +COMPAZINE25 M1 PR; +REGLAN10 MG PO
[2017-11-02 19:26] LABS: HEMATOCRIT 37.6 % (36.0-46.0); HEMOGLOBIN 13.3 G/DL (11.9-15.5); MCH 31.9 PG (29.0-34.0); MCHC 35.4 G/DL (30.0-36.0); MCV 90.2 FL (83-99); PLATELET COUNT 195 K/uL (156-360); RBC DIS.WIDTH-SD 46.1 % (39-53); RED BLOOD COUNT 4.17 M/uL (3.80-5.20); WHITE BLOOD COUNT 10.9 K/uL (4.1-10.2)
[2017-11-02 19:31] LABS: APPEARANCE CLEAR ((CLEAR)); BILIRUBIN NEGATIVE; BLOOD SMALL; COLOR STRAW ((YELLOW)); GLUCOSE (STRIP) NEGATIVE; KETONES NEGATIVE; LEUKOCYTES NEGATIVE; NITRITE NEGATIVE; PROTEIN (STRIP) NEGATIVE; SPECIFIC GRAVITY 1.004 (1.000-1.030); UROBILINOGEN 0.2 MG/DL (0.2-1.0)
[2017-11-02 19:36] LABS: BACTERIA RARE /HPF; EPITHELIAL CELLS RARE /HPF; MUCUS TRACE /LPF; RED BLOOD CELLS 0-5 /HPF (0-5); UCUL ADDED? NO; WHITE BLOOD CELLS 0-5 /HPF (0-5)
[2017-11-02 19:43] LABS: ALBUMIN 3.9 g/dL (3.2-4.8)
[2017-11-02 19:44] LABS: CHLORIDE 109 mEq/L (99-109); POTASSIUM 3.9 mEq/L (3.7-5.4); SODIUM 141 mEq/L (136-147)
[2017-11-02 19:46] LABS: GLUCOSE 196 mg/dL (70-99); TOTAL PROTEIN 6.6 g/dL (6.4-8.3)
[2017-11-02 19:48] LABS: TOTAL BILIRUBIN 0.5 mg/dL (0.0-1.0)
[2017-11-02 19:49] LABS: ALKALINE PHOSPHATASE 78 IU/L (3-129)
[2017-11-02 19:50] LABS: CREATININE 0.8 mg/dL (0.6-1.3); GFR ESTIMATE (CALCULATED) > 59 mL/min/
[2017-11-02 19:51] LABS: AST (GOT) 11 IU/L (2-34); UREA NITROGEN (BUN) 9 mg/dL (9-23)
[2017-11-02 19:53] LABS: ALT (GPT) 17 IU/L (3-49)
[2017-11-02 20:16] LABS: LIPASE 137 U/L (1.0-51.0)
[2017-11-02] MEDS ORDERED: ZOFRAN4 MG PO (22:31)
[2017-11-02] MEDS ORDERED: REGLAN10 MG PO (22:31)
[2017-11-02] MEDS ORDERED: PHENERGAN25 MG PR (22:31)
[2017-11-02 22:45] VITALS: BP 149/78
== END 2017-11-02 22:55 | disposition home or self-care (01) ==
LOC: EME 19:01
DX: K85.90 Acute pancreatitis without necrosis or infection, unspecified (principal); R11.2 Nausea with vomiting, unspecified; J44.9 Chronic obstructive pulmonary disease, unspecified; M79.7 Fibromyalgia; I11.0 Hypertensive heart disease with heart failure; I50.9 Heart failure, unspecified; K21.9 Gastro-esophageal reflux disease without esophagitis; F32.9 Major depressive disorder, single episode, unspecified; F41.9 Anxiety disorder, unspecified; F17.200 Nicotine dependence, unspecified, uncomplicated; Z85.51 Personal history of malignant neoplasm of bladder; Z85.038 Personal history of other malignant neoplasm of large intestine; Z85.828 Personal history of other malignant neoplasm of skin; Z86.73 Personal history of transient ischemic attack (TIA), and cerebral infarction without residual deficits; Z90.49 Acquired absence of other specified parts of digestive tract; Z88.5 Allergy status to narcotic agent
CPT/HCPCS: 74177; 80053; 81003; 83690; 85027; 99281; 99284; J2405; J3010; J7030